=== PATIENT | female | born 1950 | race Caucasian/White ===

== ENCOUNTER 2017-07-12 08:03 | Inpatient (IN) | payer OTHER, MEDICARE ==
[2017-07-11 23:46] VITALS: BP 152/57; PULSE 81; RESP 18; TEMP 96.7; O2SAT 94
[~2017-07-12] VITALS: Ht 175.3 cm; Wt 102.2 kg
[~2017-07-12 08:03] MED LIST: ATOR40TA16 PO; BUPR150T3 PO; BUSP5TAB PO; CLOP75TA PO; E 101000 PO; LEVO50TA4 PO; LOSA100T PO; MAPA500T PO; MELO15TA20 PO; PANT40TA3 PO; PLAQ200T PO; PRED1 PO; TOFA5TAB PO; VALT1TAB PO; VITA10002 PO; VITD400 PO
[2017-07-12] MEDS ORDERED: LACTATED RINGER'S 1000 ML IV PRN (09:00)
[2017-07-12] MEDS ORDERED: POVIDONE IODINE 7.5% SCRUB 118 ML BOTTLE TOPICAL SCH (09:00)
[2017-07-12] MEDS ORDERED: VANCOMYCIN 1000 MG/NS 250 ML (for <70 kg) IV SCH ×2 (09:00)
[2017-07-12] MEDS ORDERED: SODIUM CHLORID 0.9% 500 ML IV PRN (09:00)
[2017-07-12] MEDS ORDERED: CHLORHEXIDINE GLUCONATE 2 % 1 PACK (2 CLOTHS) TOPICAL PRN (09:00)
[2017-07-12] MEDS ORDERED: POVIDONE IODINE 5% (ANTISEPSIS KIT) 4 APPLICATIONS EACH NARE PRN (09:00)
[2017-07-12] MEDS ORDERED: METOPROLOL TARTRATE 25 MG TAB PO PRN (09:00)
[2017-07-12] MEDS ORDERED: PHENYLEPHRINE HCL 10 MG/ML VIAL IV ONE (12:00)
[2017-07-12] MEDS ORDERED: SODIUM CHLORIDE 0.9% 20 ML VIAL IV ONE (12:00)
[2017-07-12] MEDS ORDERED: ePHEDrine/NS 25 MG/5 ML SYRINGE IV ONE (12:00)
[2017-07-12] MEDS ORDERED: ceFAZolin INJ 1,000 MG VIAL IV ONE (12:00)
[2017-07-12] MEDS ORDERED: LACTATED RINGER'S 1000 ML INJ 1,000 ML IV ONE (12:00)
[2017-07-12] MEDS ORDERED: ONDANSETRON HCL 4 MG/2 ML VIAL IV PUSH ONE (12:00)
[2017-07-12] MEDS ORDERED: GLYCOPYRROLATE 1 MG/5 ML SYRINGE IV PUSH ONE (12:00)
[2017-07-12] MEDS ORDERED: PROPOFOL 200 MG/20 ML AMP IV ONE (12:00)
[2017-07-12] MEDS ORDERED: NEOSTIGMINE 5 MG/5 ML SYRINGE IV PUSH ONE (12:00)
[2017-07-12] MEDS ORDERED: GELATIN 12 MM/7 MM FOAM ONE (12:18)
[2017-07-12] MEDS ORDERED: GENTAMICIN SULFATE 80 MG/2 ML VIAL ONE (12:18)
[2017-07-12] MEDS ORDERED: BETAMETHASONE SOD PHOS/ACETATE SUSP 30 MG/5 ML VIAL ONE (12:18)
[2017-07-12] MEDS: ceFAZolin 2 GM PREMIX 50 ML IV SCH ×2 (15:46→18:38)
[2017-07-12] MEDS ORDERED: busPIRone HCL 5 MG TAB PO PRN (18:15)
--- NOTE | 2017-07-12 18:24 | PD.OP ---
cc: Lucho Frye MD Operative Report Date of Surgery: Jul 12, 2017 Preoperative Diagnosis: Status post lumbar laminectomy L4 5, remote. Spondylolisthesis L4 5, grade 2. Herniated nucleus pulposus L4 5 central, right, foraminal. Right lumbosacral radiculopathy Postoperative Diagnosis: Same Procedure: Revision lumbar laminectomy right L4, L5 with subtotal right facet joint resection and resection herniated nucleus pulposis. Posterior spinal fusion, L4 5, lateral transverse process technique. Posterior spinal segmental instrumentation, L4 5. Placement of interbody cage, L4 5 from the right. Posterior lateral interbody fusion. Major bone grafting of the lumbar spine Anesthesia: Gen. Surgeon: Lucho Frye Plumbing Designer(s): LUIS ANTONIO Dean Operation and Findings: EBL: 150 ml NOTE: Shelia Dean PA-C was present for the entire surgical procedure as my activities assistant. In my medical opinion her skill and care was necessary for proper management of this patient INDICATIONS: This patient is a 67-year-old female who had a decompressive laminectomy at the L3-L4 5 level performed in [place]. Initially the patient did well but developed recurrent leg pain. The patient has studies show now a grade 2 spondylolisthesis at L4 5 and evidence of a disc herniation to the right extending into the foramen. She presents for surgical treatment. INSTRUMENTATION: Spine wave screws. A Stax expandable cage PROCEDURE: The patient brought to the operating room and anesthetized the supine position. The patient positioned prone on the Rodolfo frame on the Terry table. All pressure points are protected. The back was scrubbed with alcohol followed by Hibiclens followed by ChloraPrep and draped sterilely and antibiotics were given within a routine time window. A timeout was done. Lateral radiographic images used to identify the proper level for the procedure. Compared care for the preoperative studies. Skin markings were made anticipating surgical treatment. A right paramedian incision was made. The lamina and facet joint was exposed. We used a dilating retractor which was positioned over this region. The microscope was rolled into the field for visualization. A high-speed bur was used to take the lamina down and doing a subtotal facet resection. A revision laminectomy to the right side was found with a high degree of scar tissue affecting the crossing L5 nerve root. This was completely decompressed. The exiting and crossing nerve roots were completely decompressed. A total discectomy was accomplished. The disc space was prepared. All cartilaginous material from the disc space was removed. There was a disc herniation extending to the right out the foramen creating significant nerve root compression of the exiting right L4 nerve root. A combination of demineralized bone matrix and Nucel stem cells were mixed together on the back table.. These were injected into the disc space. The cage was then placed according to polish compounder's recommendation and deployed. Position was satisfactory. Additional bone graft was placed into the disc space. The outer edge of the facet joint was identified and prepared. Under fluoroscopic images, a bur was used to gain entrance into the pedicle followed by placement of a blunt probe, an awl and placement of proper length screws. Each screw was charged with electric current there are no abnormal potentials registered in either lower extremity. A proper length abby was fitted and attached and tightened according to polish compounder's recommendation. The wound was irrigated copiously. Bone grafting was placed along the lateral gutter in the region of the transverse process across this level. This was closed in layers with #1 Vicryl, 2-0 Vicryl and running intradermal 3-0 Vicryl followed by Steri-Strips and benzoin. On the contralateral side a separate exposure was made. The outer edge of the facet joints were identified. A bur was used to gain entrance into the pedicle followed by placement of a probe and proper length screws. Each screw was charged with electric current and no abnormal potentials registered in either lower extremity. The wound was irrigated copiously. Bone graft placed along the transverse process across this level. It was closed in layers using #1 Vicryl, 2-0 Vicryl and running intradermal 3-0 Vicryl followed by Steri-Strips and benzoin. Intraoperative radiographs were obtained. No complication was appreciated. The patient had a sterile dressing applied. The patient was awakened and taken to recovery room in satisfactory condition. FINDINGS: There was evidence of the severe instability at the L4 5 level. We were able to lag the L4 level back creating a almost anatomic reduction and re- creating appropriate lordosis across this level. Lucho Frye MD Jul 12, 2017 18:24
[2017-07-12] MEDS ORDERED: HYDR-3580 PO (18:25)
[2017-07-12] MEDS ORDERED: HYDROmorphone HCL PF 2 MG/ML VIAL ONE (18:28)
[2017-07-12] MEDS ORDERED: ONDANSETRON HCL 4 MG/2 ML VIAL IV PUSH PRN (18:30)
[2017-07-12] MEDS ORDERED: NALOXONE HCL 0.4 MG/ML AMP IV PUSH PRN (18:30)
[2017-07-12] MEDS ORDERED: MORPHINE SULFATE 30 MG/30 ML PCA IV SCH (18:30)
[2017-07-12] MEDS ORDERED: SOD PHOSPHATE/SOD BIPHOSPHATE (ADULT) ENEMA 133ML PR PRN (18:30)
[2017-07-12] MEDS ORDERED: Post-op Orders (for Pharmacy) XX ONE (18:30)
[2017-07-12] MEDS ORDERED: ALUMINUM/MAGNESIUM/SIMETH 30 ML CUP PO PRN (18:30)
[2017-07-12] MEDS ORDERED: ACETAMINOPHEN/HYDROcodone 325 MG/7.5 MG TAB PO PRN (18:30)
[2017-07-12] MEDS ORDERED: BISACODYL 10 MG SUPP RECTAL PRN (18:30)
[2017-07-12] MEDS ORDERED: DO NOT ADM ANY ANTICOAGULANT DRUGS PRN (18:57)
--- NOTE | 2017-07-12 19:03 | RADRPT ---
EXAM DATE/TIME: 07/12/2017 18:07 [facility] COMPARISON: No previous studies available for comparison. INDICATIONS : Lumbar fusion L4-L5. Post op. MEDICAL HISTORY : None. SURGICAL HISTORY : None. ENCOUNTER: Initial ACUITY: 1 day PAIN SCORE: Non-responsive. LOCATION: lumbar. FINDINGS: AP and lateral views in the operating room show fusion procedure with interbody and posterior instrum entation at L4/L5. Alignment is anatomic. No fractures are demonstrated. CONCLUSION: L4/L5 fusion without evidence of an acute complication. Quintin Thomas MD on July 12, 2017 at 19:01 Board Certified Radiologist. This report was verified electronically.
[2017-07-12] MEDS: LACTATED RINGER'S 1000 ML INJ 1,000 ML IV SCH (19:21)
[2017-07-12] MEDS ORDERED: *morphine SULFATE 8 MG/ML PERIprocedure ONLY ONE (19:36)
[2017-07-12 20:46] VITALS: BP 152/57; PULSE 81; RESP 18; TEMP 96.7; O2SAT 94
[2017-07-12] MEDS ORDERED: ZOLPIDEM TARTRATE 5 MG TAB PO PRN (21:00)
[2017-07-12] MEDS: PCA - TOTAL MG MORPHINE DELIVERED PER SHIFT SCH (22:00)
[2017-07-12] MEDS: ATORVASTATIN 40 MG TAB PO SCH (22:48)
[2017-07-12 23:00] VITALS: BP 143/57; PULSE 85; RESP 18; TEMP 96.8; O2SAT 95
[2017-07-12] MEDS ORDERED: WALKER WHEELS/F1 MIS (23:32)
[2017-07-12] MEDS ORDERED: COMMODE 3-IN-11 MIS (23:33)
--- NOTE | 2017-07-12 23:34 | HHI.DCPOC ---
Discharge Care Plan Diagnosis: (1) Lumbar spinal stenosis (2) Postlaminectomy syndrome Your Health Problems Are: Difficulty with ADL Incision/Drains Swelling Goals to Promote Your Health * To prevent worsening of your condition and complications * To maintain your health at the optimal level Directions to Meet Your Goals Take your medications as prescribed Follow your dietary instruction Follow activity as directed Keep your appointments as scheduled Take your immunizations and boosters as scheduled If your symptoms worsen call your PCP, if no PCP go to Urgent Care Center or Emergency Room Smoking is Dangerous to Your Health. Avoid second hand smoke Call the 24-hour hour crisis hotline for domestic abuse at Janeth Pinto Jul 12, 2017 23:34
--- NOTE | 2017-07-12 23:35 | HHI.FF ---
Face to Face Verification Diagnosis: (1) Postlaminectomy syndrome (2) Lumbar spinal stenosis Physical Therapy Gait training, Safety evaluation, Transfer training, bed to chair S/P Spinal Fusion: Gait training with walker, Weight bearing as tolerated, No twisting of torso, No bending Additional Instructions PT 4 days/wk for 1 week. WBAT. Out of bed with brace. Walker for ambulation. Nursing RN Days per Week: 2 x Week(s): 1 Dressing Changes: Do not change dressing Additional Instructions Hold dressing changes unless saturated. Vitals assessment. I have seen patient Celine Mg on 07/12/17. My clinical findings support the need for the requested home health care services because: Limited ability to care for self High risk of falls I certify that my clinical findings support that this patient is homebound because: Post-op weakness Unsteady gait/balance Janeth Pinto Jul 12, 2017 23:35
--- NOTE | 2017-07-12 23:40 | HHI.DS ---
Discharge Summary Admission Date Jul 12, 2017 at 08:03 Discharge Date: Jul 14, 2017 Admitting Diagnosis see below Diagnosis: (1) Lumbar spinal stenosis Diagnosis: Principal ICD Codes: M48.061 - Spinal stenosis, lumbar region without neurogenic claudication (2) Postlaminectomy syndrome Diagnosis: Principal ICD Codes: M96.1 - Postlaminectomy syndrome, not elsewhere classified Procedures Revision right laminectomy L45, foraminal decompression, posterior lumbar fusion , posterolateral interbody fusion with interbody cage L45, bone graft. Brief History This is a 67 year old female patient with a history of previous lumbar laminectomy times two at L45 performed at [facility], [facility], both in 2009. She did well for a short period of time after each surgery. She began having increased low back and right leg pain august 2016. She attempted self- treatment with over the counter medications and activity limitations. She sought out treatment. Xrays and MRI were performed. Conservative treatment with meloxicam and lumbar brace were pursued. Imaging studies showed spinal stenosis at L45 and the beginnings of instability. Surgical treatment was recommended in the form of revision laminectomy L45, with foraminal decompression and posterior lumbar fusion L45. The patient agreed and now presents for the above. Hospital Course Surgical treatment was performed on the day of admission without complication. She recovered well in PACU and was transferred to the orthopaedic floor. Pain was controlled with IV and oral medications. She was compliant with physical therapy, her lumbar brace and all restrictions. After 2 days she was found to be stable and discharged home with home health care. She was educated to continue her therapy at home, pursue a high fiber diet for 5-7 days, continue her lumbar brace regional transfer liaison when out of bed for 10 weeks and to use ice on her lumbar spine bid for 5-7 days. She was given an outpatient prescription for [place] 7.5mg. Pt Condition on Discharge: Stable Discharge Disposition: Disch w/ Home Health Serv Discharge Instructions Diet Instructions: As Tolerated, No Restrictions, High Fiber Diet Activities You Can Perform: Weight Bearing as [place], See Additionl Instruction Activities to Avoid: Strenuous Activity Additional Activity Instruc.: Lumbar brace full-time when out of bed New Medications: Commode 3-in-1 (Commode 3-in-1) 1 Mis Mis EA .ROUTE DIRECTED, #1 0 Refills Walker with Front Wheels (Walker with Front Wheels) 1 Mis Mis EA .ROUTE DIRECTED, #1 0 Refills Hydrocodone/Acetaminophen (Hydrocodone-Acetamin 7.5-325) 7.5 Mg-325 Mg Tablet 1 TAB PO Q4H PRN for PAIN, #50 TAB Continued Medications: Acetaminophen (Mapap) 500 Mg Tab 500 MG PO Q4-6H PRN for PAIN, TAB 0 Refills Atorvastatin (Atorvastatin) 40 Mg Tab 40 MG PO HS for Cholesterol Management, #30 TAB 0 Refills Bupropion HCl ER 24 HR (Bupropion HCl ER 24 HR) 150 Mg Tab 150 MG PO DAILY for Control Depression, TAB 0 Refills Buspirone (Buspirone) 5 Mg Tab 5 MG PO BID PRN for ANXIETY, TAB 0 Refills Cholecalciferol (Vitamin D3) 400 Unit Tab 200 UNITS PO DAILY for Nutritional Supplement, #1 TAB 0 Refills Clopidogrel (Clopidogrel) 75 Mg Tab 75 MG PO DAILY for Blood Clot Prevention, #30 TAB 0 Refills Cyanocobalamin (Vitamin B-12) 1,000 Mcg Tab 1000 MCG PO DAILY for Nutritional Supplement, #1 BOTTLE 0 Refills Hydroxychloroquine (Plaquenil) 200 Mg Tab 200 MG PO DAILY, #30 TAB 0 Refills Take with food Levothyroxine (Levothyroxine) 50 Mcg Tab 50 MCG PO DAILY for Thyroid, #30 TAB 0 Refills Losartan (Losartan) 100 Mg Tab 100 MG PO DAILY for Blood Pressure Management, #30 TAB 0 Refills Pantoprazole (Pantoprazole) 40 Mg Tab 40 MG PO DAILY for Reflux, #30 TAB 0 Refills Prednisone (Prednisone) 1 Mg Tab 3 MG PO DAILY, TAB 0 Refills Tofacitinib (Xeljanz) 5 Mg Tab 5 MG PO BID for Arthritis, #60 TAB 0 Refills Valacyclovir (Valtrex) 1,000 Mg Tab 1000 MG PO DAILY for Mgmt Viral Infection, #30 TAB 0 Refills Vitamin E (E 1000) 1,000 Unit Cap 1 CAP PO DAILY Discontinued Medications: Meloxicam (Meloxicam) 15 Mg Tab 15 MG PO DAILY for Arthritis Pain, #30 TAB 0 Refills Janeth Pinto Jul 12, 2017 23:40
[2017-07-13 04:41] VITALS: BP 116/53; PULSE 70; RESP 18; TEMP 97.4; O2SAT 96
[2017-07-13] MEDS: PCA - TOTAL MG MORPHINE DELIVERED PER SHIFT SCH ×3 (06:00→22:00)
[2017-07-13] MEDS: LEVOTHYROXINE SODIUM 50 MCG TAB PO SCH (06:09)
[2017-07-13] MEDS: LACTATED RINGER'S 1000 ML INJ 1,000 ML IV SCH ×2 (06:47→19:17)
[2017-07-13 07:41] LABS: HEMATOCRIT 28.1 % (35.0-46.0)
[2017-07-13 08:00] VITALS: BP 126/52; PULSE 74; RESP 17; TEMP 97.7; O2SAT 95
[2017-07-13 08:52] VITALS: O2SAT 96
[2017-07-13] MEDS: LOSARTAN 50 MG TAB PO SCH (09:00)
[2017-07-13] MEDS: valACYclovir HCL 500 MG TAB PO SCH (09:00)
[2017-07-13] MEDS: predniSONE 1 MG TAB PO SCH (09:26)
[2017-07-13] MEDS: buPROPion HCL 150 MG SUSTAINED RELEASE TAB PO SCH (09:26)
[2017-07-13] MEDS: PANTOPRAZOLE SOD 40 MG DELAYED RELEASE TAB PO SCH (09:27)
[2017-07-13 12:00] VITALS: BP 143/51; PULSE 76; RESP 17; TEMP 97.5; O2SAT 91
--- NOTE | 2017-07-13 13:22 | PD.ORT.PN ---
Subjective Subjective Remarks Laying in bed. Moderate low back pain with spasms. No new radiating leg pain. Questions about surgery. No new CP or SOB. Objective Vitals Vital Signs Date Time Temp Pulse Resp B/P (MAP) Pulse Ox O2 Delivery O2 Flow Rate FiO2 07/13/17 12:00 97.5 76 17 143/51 (81) 91 07/13/17 08:52 96 Nasal Cannula 1.00 07/13/17 08:00 97.7 74 17 126/52 (76) 95 07/13/17 04:41 97.4 70 18 116/53 (74) 96 07/12/17 23:00 96.8 85 18 143/57 (85) 95 07/12/17 20:46 96.7 81 18 152/57 (88) 94 07/12/17 20:21 Nasal Cannula 2.00 07/12/17 20:21 Nasal Cannula 2.00 07/12/17 19:45 97.7 69 16 128/60 (82) 100 Nasal Cannula 2 07/12/17 19:30 68 16 156/67 (96) 100 Nasal Cannula 2 07/12/17 19:23 16 07/12/17 19:15 63 20 163/68 (99) 99 Nasal Cannula 2 07/12/17 18:58 97.7 63 20 151/67 (95) 99 Nasal Cannula 2 I/O 07/12/17 07/12/17 07/12/17 07/13/17 07/13/17 07/13/17 07:00 15:00 23:00 07:00 15:00 23:00 Intake Total 1740 ml 580 ml Output Total 600 ml 300 ml Balance 1140 ml 280 ml Intake Oral 240 ml 480 ml IV Total 100 ml Other 1500 ml Output Urine Total 350 ml 300 ml Estimated Blood Loss 250 ml # Bowel Movements 0 0 Result Diagram: 07/13/17 0715 Procedures Revision right laminectomy L45, foraminal decompression, posterior lumbar fusion , posterolateral interbody fusion with interbody cage L45, bone graft. Objective Remarks Laying in bed NAD VSS L/S Dressings c/d/i, minimal SS drainage, mild swelling and some spasm, no erythema +motor at, +sens, +nvi Neg homans bilat Assessment & Plan Ortho Post Op Day #: 1 Problem List: (1) Lumbar spinal stenosis ICD Codes: M48.061 - Spinal stenosis, lumbar region without neurogenic claudication Qualifiers: Qualified Codes: M48.062 - Spinal stenosis, lumbar region with neurogenic claudication (2) Postlaminectomy syndrome ICD Codes: M96.1 - Postlaminectomy syndrome, not elsewhere classified Assessment and Plan pod#1 s/p Rev Lami L45, PSF/PLIF L45 Ortho stable. PO pain control as needed. Hold dressing changes unless saturated. PT - WBAT. OOB w brace for 10 weeks. D/C planning, likely home w [facility] tomorrow. F2F written. Janeth Pinto Jul 13, 2017 13:22
[2017-07-13] MEDS: ACETAMINOPHEN/HYDROcodone 325 MG/7.5 MG TAB PO PRN ×3 (15:48→23:44)
[2017-07-13 16:00] VITALS: BP 146/60; PULSE 79; RESP 17; TEMP 96.8; O2SAT 97
[2017-07-13] MEDS: ATORVASTATIN 40 MG TAB PO SCH (19:48)
[2017-07-13] MEDS: DOCUSATE SODIUM 100 MG CAP PO SCH (19:49)
[2017-07-13 20:50] VITALS: BP 126/55; PULSE 79; RESP 17; TEMP 98.2; O2SAT 96
[2017-07-14 00:42] VITALS: BP 135/54; PULSE 78; RESP 17; TEMP 99.8; O2SAT 96
[2017-07-14 04:07] VITALS: BP 120/65; PULSE 92; RESP 17; TEMP 99.6; O2SAT 96
[2017-07-14] MEDS: PCA - TOTAL MG MORPHINE DELIVERED PER SHIFT SCH (05:36)
[2017-07-14] MEDS: LEVOTHYROXINE SODIUM 50 MCG TAB PO SCH (05:37)
--- NOTE | 2017-07-14 06:46 | PD.ORT.PN ---
Subjective Subjective Remarks No complaints. No leg pain. Mild low back pain Objective Vitals Vital Signs Date Time Temp Pulse Resp B/P (MAP) Pulse Ox O2 Delivery O2 Flow Rate FiO2 07/14/17 04:07 99.6 92 17 120/65 (83) 96 07/14/17 00:42 99.8 78 17 135/54 (81) 96 07/13/17 20:50 98.2 79 17 126/55 (78) 96 07/13/17 20:02 Room Air 07/13/17 16:00 96.8 79 17 146/60 (88) 97 07/13/17 12:00 97.5 76 17 143/51 (81) 91 07/13/17 08:52 96 Nasal Cannula 1.00 07/13/17 08:00 97.7 74 17 126/52 (76) 95 I/O 07/13/17 07/13/17 07/13/17 07/14/17 07/14/17 07/14/17 07:00 15:00 23:00 07:00 15:00 23:00 Intake Total 580 ml 380 ml 240 ml Output Total 300 ml Balance 280 ml 380 ml 240 ml Intake Oral 480 ml 380 ml 240 ml IV Total 100 ml Output Urine Total 300 ml # Voids 1 2 # Bowel Movements 0 0 0 Result Diagram: 07/13/17 0715 Procedures Revision right laminectomy L45, foraminal decompression, posterior lumbar fusion , posterolateral interbody fusion with interbody cage L45, bone graft. Objective Remarks Laying in bed NAD VSS L/S Dressings c/d/i, minimal SS drainage, mild swelling and some spasm, no erythema +motor at, +sens, +nvi Neg homans bilat Assessment & Plan Ortho Post Op Day #: 2 Problem List: (1) Lumbar spinal stenosis ICD Codes: M48.061 - Spinal stenosis, lumbar region without neurogenic claudication Qualifiers: Qualified Codes: M48.062 - Spinal stenosis, lumbar region with neurogenic claudication (2) Postlaminectomy syndrome ICD Codes: M96.1 - Postlaminectomy syndrome, not elsewhere classified Assessment and Plan pod#2 s/p Rev Lami L45, PSF/PLIF L45 Ortho stable. PO pain control as needed. No dressing changes PT - WBAT. OOB w brace for 10 weeks. D/C planning, home today [place] for pain. Office visit 2 weeks F2F written. Lucho Frye MD Jul 14, 2017 06:46
[2017-07-14] MEDS: LACTATED RINGER'S 1000 ML INJ 1,000 ML IV SCH (07:47)
[2017-07-14 08:00] VITALS: BP 141/60; PULSE 104; RESP 18; TEMP 99.6; O2SAT 95
[2017-07-14] MEDS: LOSARTAN 50 MG TAB PO SCH (08:30)
[2017-07-14] MEDS: DOCUSATE SODIUM 100 MG CAP PO SCH (08:30)
[2017-07-14] MEDS: valACYclovir HCL 500 MG TAB PO SCH (08:30)
[2017-07-14] MEDS: buPROPion HCL 150 MG SUSTAINED RELEASE TAB PO SCH (08:31)
[2017-07-14] MEDS: ACETAMINOPHEN/HYDROcodone 325 MG/7.5 MG TAB PO PRN (08:31)
[2017-07-14] MEDS: predniSONE 1 MG TAB PO SCH (08:31)
[2017-07-14] MEDS: PANTOPRAZOLE SOD 40 MG DELAYED RELEASE TAB PO SCH (08:31)
[2017-07-14 11:31] VITALS: O2SAT 95
== END 2017-07-14 12:03 | disposition home health service (06) | DRG 460 ==
LOC: HSDI 08:03 → N06A 20:04
PROVIDERS: ADMIT Orthopaedic Surgery Orthopaedic Surgery of the Spine; ATTEND Orthopaedic Surgery Orthopaedic Surgery of the Spine
PROC: 0SB20ZZ Excision of Lumbar Vertebral Disc, Open Approach (ICD-10-PCS; 2017-07-12)
PROC: 01NB0ZZ Release Lumbar Nerve, Open Approach (ICD-10-PCS; 2017-07-12)
PROC: 0SG00AJ Fusion of Lumbar Vertebral Joint with Interbody Fusion Device, Posterior Approach, Anterior Column, Open Approach (ICD-10-PCS; principal; 2017-07-12 15:05)
DX: M51.16 Intervertebral disc disorders with radiculopathy, lumbar region (principal); I10 Essential (primary) hypertension; E03.9 Hypothyroidism, unspecified; M53.2X6 Spinal instabilities, lumbar region; M43.16 Spondylolisthesis, lumbar region; M96.1 Postlaminectomy syndrome, not elsewhere classified; M48.062 Spinal stenosis, lumbar region with neurogenic claudication; M06.9 Rheumatoid arthritis, unspecified; K21.9 Gastro-esophageal reflux disease without esophagitis; E78.00 Pure hypercholesterolemia, unspecified; F32.9 Major depressive disorder, single episode, unspecified; Z85.828 Personal history of other malignant neoplasm of skin; Z86.73 Personal history of transient ischemic attack (TIA), and cerebral infarction without residual deficits; Z87.891 Personal history of nicotine dependence; Z88.5 Allergy status to narcotic agent; Z88.8 Allergy status to other drugs, medicaments and biological substances
CPT/HCPCS: 72100; 76000; 85014; 85018; 86850; 86900; 86901; 94150; C1713; J0690; J0702; J1170; J1580; J2270; J2370; J2405; J2710; J3370; J7050; J7120; J7512